=== PATIENT | female | born 1965 | race Hispanic/Latino ===

== ENCOUNTER 2022-05-28 00:35 | Emergency (ER) | payer OTHER ==
[~2022-05-28] VITALS: Ht 167.6 cm; Wt 99.3 kg
[2022-05-28 00:35] VITALS: BP 141/66
--- NOTE | 2022-05-28 00:35 | NUR ---
ARRIVAL ARRIVED VIA EMS. HAS BEEN IN [place] FOR VACATION. WAS TRAVELING [place]ONG [address] BACK [facility] [place] [facility]. STARTED FEELING WEIRD AND SWEATING, PULLED OVER TO SIDE OF THE ROAD AND LAID SEAT BACK THEN HAD A SYNCOPAL EPISODE. AFTER AWAKING OF UNKNOWN TIME, GOT OUT OF CAR TO WALK TO TABLE AND HAD SYNCOPAL EPISODE AGAIN. SON LOWERED HER TO THE GROUND. PT STATES, "I DID NOT HIT MY HEAD." IN ROUTE EMS GAVE 400 ML BOLUS AND ZOFRAN 4MG. PT STATED, "I AM FEELING MUCH BETTER NOW." HAS NOT HAD ANY SYNCOPAL EPISODES IN ROUTE OR DURING ASSESSMENT BY THIS NURSE. ALERT AND ORIENTED X3. PUPILS PERRLA. NOTIFIED DR. JOHNSON. ORDERS ADMINISTERED ORDERED.
[2022-05-28] MEDS ORDERED: NS 1000ML 1,000 ML STA (00:54)
[2022-05-28 01:11] LABS: BASOPHIL % 0.9 % (0.0-0.2); EOSINOPHIL % 0.6 % (0.0-5.0); LYMPHOCYTES # 1.02 10^3/uL1 (1.0-4.8); LYMPHOCYTES % 29.9 % (24.0-44.0); MONOCYTES # 0.6 10^3/uL (0.3-0.8); MONOCYTES % 18.8 % (5.0-12.0); NEUTROPHIL # 1.7 10^3/uL (1.8-7.7); NEUTROPHILS % 49.5 % (41.0-85.0); PLATELET COUNT 143 10^3/uL (150-400); RED CELL DISTRIBUTION WIDTH 11.7 % (11.5-14.5)
[2022-05-28] MEDS ORDERED: NS 1000ML 1,000 ML ONE (01:11)
[2022-05-28 01:46] VITALS: BP 140/73
--- NOTE | 2022-05-28 01:46 | NUR ---
AMBULATION AMBULATED TO RESTROOM WITH STAND BY ASSIST ONLY. ALERT AND ORIENTED X3. GAIT STEADY. WAS ABLE TO VOID AND PROVIDE SAMPLE FOR UZ WHICH WAS TAKEN TO LAB. PT STATED, "I MUST HAVE SHIT MYSELF WHEN I FAINTED." SMALL AMOUNT OF BM NOTED TO UNDERWEAR. PROVIDED WIPES AND PT'S FRESH CLOTHING FROM CAR. WAS ABLE TO CHANGE SELF AND CLEANSE SELF UP WITHOUT ANY DIZZINESS, SWEATING, OR SYNCOPAL EPISODE. AMBULATED BACK TO BED WITH STAND BY ASSIST ONLY. GAIT STEADY. VITAL WNL SEE VITAL SIGNS UNDER INTERVENTIONS. REPORTED ABOVE TO DR. JOHNSON. NO NEW ORDERS AT THIS TIME.
[2022-05-28 01:58] LABS: BILIRUBIN,URINE NEGATIVE (NEGATIVE); UROBILINOGEN,URINE 0.2 E.U./dL (0.2)
[2022-05-28 02:15] VITALS: BP 144/70
--- NOTE | 2022-05-28 02:24 | ER.PDOC ---
General Chief Complaint: Syncope Stated Complaint: SYNCOPE, DEHYDRATION Time seen by MD: :22 Source: patient Exam Limitations: no limitations History of Present Illness Initial Comments 56-year-old female who is traveling from [place] to [place], she is been out in the heat today for the prolonged period of time. She was driving started feel lightheaded, fading to black. She passed out in the backseat. Started to feel nauseous, clammy, and then passed out. She does feel some generalized weakness. Otherwise no headache, no chest pain or shortness of breath. No nausea vomiting or diarrhea. She got some fluids with EMS has already started to feel better Past Medical History Medical History: hypertension Surgical History: , hysterectomy Social History Alcohol Use: none Drug Use: none Review of Systems All Other Systems: Reviewed and Negative Physical Exam General Appearance: No Apparent Distress HEENT: Normal ENT Inspection Neck: Normal Inspection Cardiovascular/Respiratory: Regular Rate, Rhythm, Normal Peripheral Pulses Gastrointestinal: Non Tender, Soft Extremities: Normal Inspection, No Pedal Edema Psychiatric: Alert, Oriented x 3 Cranial Nerves: Normal Speech Motor/Sensory: No Motor Deficit, No Sensory Deficit Skin: Normal Color Lymphatic: No Adenopathy Results/Orders Results/Orders Orders - JULIENNE JOHNSON MD Cbc With Auto Diff (05/28/22 00:54) Comprehensive Metabolic Panel (05/28/22 00:54) Lipase (05/28/22 00:54) PT (05/28/22 00:54) Urinalysis (05/28/22 00:54) 0.9 % Sodium Chloride (Ns 1000ml) (05/28/22 00:54) Ekg-Routine (05/28/22 00:54) 0.9 % Sodium Chloride (Ns 1000ml) (05/28/22 01:11) Vital Signs Date Time Temp Pulse Resp B/P (MAP) Pulse Ox O2 Delivery O2 Flow Rate FiO2 05/28/22 02:15 74 20 144/70 (94) 96 Room Air* 0 21 05/28/22 01:46 99.2 82 20 140/73 (95) 97 Room Air* 0 21 05/28/22 00:35 99.2 89 20 05/28/22 00:35 99.2 89 20 141/66 (91) 93 Room Air* 0 21 05/28/22 00:35 99.2 89 20 93 Administered Medications Medications (Trade) Dose Ordered Sig/Tristin Route PRN Reason Start Time Stop Time Status Last Admin Dose Admin Sodium Chloride 1,000 ml @ 0 mls/hr Q0M STAT IV 05/28/22 00:54 05/28/22 00:56 DC 05/28/22 01:11 999 MLS/HR Laboratory Tests Test 05/28/22 00:56 05/28/22 01:32 White Blood Count 3.4 10^3/uL (4.5-11.0) L Red Blood Count 4.81 10^6/uL (4.00-5.20) Hemoglobin 15.4 g/dL (12.0-15.0) H Hematocrit 46.5 % (36.0-46.0) H Mean Corpuscular Volume 96.7 fL (78-100) Mean Corpuscular Hemoglobin 32.0 pg (26-34) Mean Corpuscular Hemoglobin Concent 33.1 g/dL (33-36.5) Red Cell Distribution Width 11.7 % (11.5-14.5) Platelet Count 143 10^3/uL (150-400) L Mean Platelet Volume 10.5 fL (7.8-11.0) Neutrophils (%) (Auto) 49.5 % (41.0-85.0) Lymphocytes (%) (Auto) 29.9 % (24.0-44.0) Monocytes (%) (Auto) 18.8 % (5.0-12.0) H Neutrophils # (Auto) 1.7 10^3/uL (1.8-7.7) L Lymphocytes # (Auto) 1.02 10^3/uL1 (1.0-4.8) Monocytes # (Auto) 0.6 10^3/uL (0.3-0.8) Absolute Immature Granulocyte (auto 0.01 10^3 u/L (0-2) Absolute Eosinophils (auto) 0.0 10^3/uL (0.0-0.2) Immature Granulocytes % 0.30 % (0.00-0.50) Eosinophils % 0.6 % (0.0-5.0) Basophils % 0.9 % (0.0-0.2) H Basophils # 0.0 10^3/uL (0.0-0.1) Prothrombin Time 15.1 SEC (9.1-11.5) H Prothrombin Time INR (Non-Therap) 1.5 Sodium Level 136 mmol/L (132-145) Potassium Level 3.3 mmol/L (3.6-5.2) L Chloride Level 101.0 mmol/L (96-109) Carbon Dioxide Level 22.0 mmol/L (20.0-32) Anion Gap 16.3 Blood Urea Nitrogen 13 mg/dL (7-18) Creatinine 0.95 mg/dL (0.59-1.40) Estimated GFR () 73.9 (>/=60) Est GFR (CKD-EPI)(Non-Afr Swiss) 61.1 (>/=60) BUN/Creatinine Ratio 13.0 Glucose Level 111 mg/dL (70-110) H Calcium Level 8.5 mg/dL (8.4-10.5) Total Bilirubin 0.5 mg/dL (0.2-1.0) Aspartate Amino Transferase (AST) 49 U/L (0-35) H Alanine Aminotransferase (ALT) 98 U/L (12-78) H Alkaline Phosphatase 50 U/L (50-136) Total Protein 7.2 g/dL (6.4-8.2) Albumin 4.1 g/dL (3.4-5.0) Globulin 3.1 Albumin/Globulin Ratio 1.322 Lipase 53 U/L (114-286) L Urine Collection Type RANDOM Urine Color YELLOW Urine Appearance TURBID Urine Bilirubin NEGATIVE (NEGATIVE) Urine Ketones NEGATIVE (NEGATIVE) Urine Specific [place] 1.025 (1.005-1.030) Urine pH 5.5 (4.5-8.0) Urine Protein 1+ (NEGATIVE) H Urine Urobilinogen 0.2 E.U./dL (0.2) Urine Nitrate NEGATIVE (NEGATIVE) Urine Leukocyte Esterase NEGATIVE (NEGATIVE) Urine Glucose (Auto)(UA) NEGATIVE (NEGATIVE) Urine Blood NEGATIVE (NEGATIVE) Urine RBC NONE SEEN RBC/HPF (NONE Urine WBC 0-2 WBC/HPF (0-2) Urine Squamous Epithelial Cells MODERATE (<=FEW) Urine Bacteria MODERATE (NONE SEEN) H Urine Hyaline Casts FEW (NONE SEEN) A Urine Fine Granular Casts FEW (NONE SEEN) A Progress Progress Vitals are within normal limits, she feels much better after IV fluids. Work-up is unremarkable, aside from ketones in the urine. Counseled to increase hydration until she gets back home she can follow-up with her normal doctor ER DEPARTURE Departure Time of Disposition: 02:23 Disposition: 01 HOME / SELF CARE / HOMELESS Impression: Primary Impression: Syncope and collapse Condition: Improved Patient Instructions: Dehydration, Adult, [id number], Syncope, [id number] Referrals: PCP,UNKNOWN (PCP) PRIMARY CARE PROVIDER Additional Instructions: IN THE ER YOU WERE SEEN AND EXAMINED BY THE PHYSICIAN AND NURSES, HAD VITAL SIGNS MONITORED, LABS DRAWN, EKG, AND WAS GIVEN IV FLUIDS. AT HOME FOLLOW UP WITH PRIMARY PHYSICIAN IN 2-3 DAYS. RETURN TO ER IF SYMPTOMS WORSEN OR IF YOU HAVE CONCERNS. Duration or Time Spent with Pa: 10m Justification of Admit/Observ Is this patient coming directl: No *Level of Care/Services Provid: ER Admit Criteria Met: NO Justification Content JUSTIFICATION FOR ADMISSION Instructions 1. Open link in [employer] Browser. [email or web address] 2. Copy and paste data needed to meet the Admit Criteria. 3. Modify and document the needful data to meet the Admit Criteria. JULIENNE JOHNSON MD May 28, 2022 02:24
--- NOTE | 2022-05-28 07:12 | PCM.EKG ---
[facility] Test Date: 2022-05-28 Test Time: 00:47:05 Pat Name: PHILIPP MEREDITH Department: Patient ID: [id number] Room: Gender: F Psychology Lecturer: SIOBHAN : 1965 Requested By: JULIENNE JOHNSON Order Number: [id number] Reading MD: Measurements Intervals [place] Rate: 86 P: -11 [place]: 172 QRS: -61 QRSD: 101 T: 31 QT: 379 QTc: 454 Interpretive Statements Sinus rhythm Incomplete RBBB and LAFB RSR' in V1 or V2, right VCD or RVH No previous ECG available for comparison Please click the below link to view image of tracing.
== END 2022-05-28 02:30 | disposition home or self-care (01) ==
LOC: EDBD 00:35 → ER 00:35
DX: R55 Syncope and collapse (principal); E86.0 Dehydration; I10 Essential (primary) hypertension; R53.1 Weakness; Z90.710 Acquired absence of both cervix and uterus
CPT/HCPCS: 99284; 96360; 80053; 85025; 36415; 81001; 83690; 85610; 93005; J7030